=== PATIENT | female | born 1990 | race Caucasian/White ===

== ENCOUNTER → 2016-07-17 09:59 | Outpatient (CLI) | payer OTHER ==
[2014-05-25 10:44] VITALS: BMI 34.9
[~2016-07-17 09:59] MED LIST: IBUPROFEN600 MG PO; PERCOCET 5-3251 TAB PO; PRENATAL COMPLE1 TAB PO
[2016-07-17 11:08] LABS: APPEARANCE HAZY (CLEAR); BILIRUBIN NEGATIVE (NEGATIVE); COLOR YELLOW (YELLOW); GLUCOSE NEGATIVE (NEGATIVE); KETONE NEGATIVE (NEGATIVE); LEUKOCYTE ESTERASE NEGATIVE (NEGATIVE); NITRITE NEGATIVE (NEGATIVE); PROTEIN NEGATIVE (NEGATIVE); UROBILINOGEN NORMAL (NORMAL)
== END | disposition home or self-care (01) ==
LOC: D.LDO 09:59
PROVIDERS: Obstetrics & Gynecology
DX: Z34.83 Encounter for supervision of other normal pregnancy, third trimester (principal); N89.8 Other specified noninflammatory disorders of vagina

== ENCOUNTER → 2016-09-18 10:38 | Outpatient (CLI) | payer SELFPAY ==
[2014-05-25 10:44] VITALS: BMI 34.9
== END | disposition home or self-care (01) ==
LOC: D.LDO 10:38 → D.ER 10:38
DX: O36.8130 Decreased fetal movements, third trimester, not applicable or unspecified (principal); Z3A.37 37 weeks gestation of pregnancy

== ENCOUNTER 2016-09-18 11:52 | Inpatient (IN) | payer SELFPAY ==
[~2016-09-18] VITALS: Ht 167.6 cm; Wt 96.2 kg
[2016-09-30] VITALS (11 sets, daily range): BP systolic 101–124; BP diastolic 60–88; Ht 167.6 cm; Wt 96.2 kg
[2016-09-30 08:06] LABS: HEMATOCRIT 30.9 % (36.0-48.0); HEMOGLOBIN 9.9 g/dL (12-16); MCV 90.6 fL (80.0-100.0); MEAN PLATELET VOLUME 11.3 fL (7.4-10.4); RBC 3.41 10x6/uL (4.00-5.40); RDW 14.5 % (11.5-14.5); WBC 9.4 10x3/uL (4.8-10.8)
[2016-09-30 09:03] LABS: APPEARANCE HAZY (CLEAR); BILIRUBIN NEGATIVE (NEGATIVE); COLOR YELLOW (YELLOW); GLUCOSE NEGATIVE (NEGATIVE); KETONE NEGATIVE (NEGATIVE); LEUKOCYTE ESTERASE 1+ (NEGATIVE); NITRITE NEGATIVE (NEGATIVE); PROTEIN NEGATIVE (NEGATIVE); UROBILINOGEN NORMAL (NORMAL)
[2016-09-30 09:04] LABS: EPITHELIAL CELLS 0-5 /hpf (0-5); RED CELLS - URINE 0-5 /hpf (0-5); WHITE CELLS - URINE 0-5 /hpf (0-5)
[2016-09-30 09:05] LABS: BACTERIA FEW /hpf (NONE SEEN)
--- NOTE | 2016-09-30 11:30 | NUR ---
RECIEVED IN ROOM 1223. ALERT. BIKINI LINE INCISION WITH STERI STRIPS. IV TO LT HAND INFUSING WITHOUT EDEMA OR ERYTHEMA. SITE WITHOUT EDEMA OR ERYTHEMA. SCD'S AND HIEN NOTED
--- NOTE | 2016-09-30 15:54 | NUR ---
in bed. alert. visiting with family. states pain improved
--- NOTE | 2016-09-30 18:15 | NUR ---
PT WITH BABY AT BREAST. NO PROBLEMS NOTED.
--- NOTE | 2016-09-30 19:30 | NUR ---
RECEIVED REPORT. WENT INTO ROOM TO OBTAIN VITAL SIGNS. PATENT REQUEST PAD AND PADDING BE CHANGED. CLEANED AROUND STANFORD CATH VIA PROTICOL- CHANGED BLUE CHUCKS PAD AND PINK BARRIER PAD UNDER PATIENT. MODERATE AMOUNT OF SANGUNIOUS RED TINGED FLUID NOTED. REPLACED BLANKETS AND SHEET. VITAL SIGNS WNL. PATIENT TOLERATED ALL WELL. NO OTHER NEEDS VOICED AT THIS TIME. PITOCIN INFUSION BAG BEEPING EMPTY. CHANGED OUT BAG PER PROTICOL. RESET VOLUME TO BE INFUSED AT THIS TIME. ENCOURAGE PATIENT AND FAMILY TO CALL IF THEY NEED ANYTHING.
--- NOTE | 2016-09-30 20:40 | NUR ---
ASSESSMENT PER FLOW SHEET, IV IN LEFT HAND INTACT WITH NO REDNESS OR EDEMA INFUSING VIA PUMP NS WITH PITOCIN AT 125 ML/HR, DERMEROL MANAGER VIDEO TO DELIVER 10MG/10MINS PER PT'S DEMAND FOR PAIN CONTROL, PT RATES INC PAIN AND CRAMPING 3-09/07, PT PUSHES BUTTON AT THIS TIME, Exegy INC WITH STERI STRIPS CDI WITH NO DRAINAGE NOTED, FRESH ICE PACK TO ABD, STANFORD CATH DRAINING DARK YELLOW URINE, PT ENC TO DRINK PLENTY OF FLUID, PT VERBALIZES UNDERSTANDING, PT DENIES FLATUS, SCD'S ON AND WORKING PROPERLY, PT DENIES NEEDS AT THIS TIME, PT'S MOM AT BEDSIDE
--- NOTE | 2016-09-30 21:33 | NUR ---
PT HOLDING BABY, DENIES NEEDS AT THIS TIME, PT'S MOM AT BEDSIDE
--- NOTE | 2016-09-30 22:40 | NUR ---
GRANDMOTHER CAME OUT TO DESK AND REQUESTED NURSE TO SPEAK WITH PATIENT. MOTHER REQUEST TO GO TO NURSERY. HAS NURSED 5 MINUTES ON EACH SIDE. PATIENT IS COMPLAINING OF ITCHING ALL OVER. NOTIFIED CHARGE NURSE WHO CALLED DR. BULL AND ORDERS RECEIVED FOR BENADRYL 25MG PO. BENADRYL GIVEN AND BROUGHT BACK IN TO MOTHER TO NURSE. ASSISTED MOTHER WITH LATCHING INFANT. FRUSTRATED AND UNABLE TO LATCH. MOTHER WORRIED WHEN LATCHS ITS INCORRECT SHE IS SORE. OBTAINED NIPPLE SHIELD AND HELPED MOTHER TO LATCH . BROUGHT MOTHER LANOLIN CREAM FOR AFTER AND INSTRUCTED HER IN USE. NO OTHER NEEDS AT THIS TIME. ENCOURAGED MOTHER TO NURSE 15-20 MINUTES ON EACH BREAST.
--- NOTE | 2016-09-30 23:40 | NUR ---
PT RESTING WITH EYES CLOSED, AROUSES TO SOFT VERBAL STIMULATION, VS OBTAINED, STANFORD CATH EMPTIED, BLUE CHUX AND JUSTIN PAD CHANGED, LITE BLEEDING NOTED WITH NO CLOTS, ALEYDA CASTAÑEDA RN BRINGS BABY TO ROOM, ADM BENADRYL PO PER MD ORDERS FOR ITCHING, FRESH ICE PACK TO ABD, PT PROVIDED AND ENC TO DRINK PLENTY OF H20, SCD'S CONTINUE AND WORKING PROPERLY, BABY TO PT'S ARMS, ALEYDA CASTAÑEDA RN ASSISTS PT WITH , PT DENIES FURTHER NEEDS, PT'S MOM AT BEDSIDE
--- NOTE | 2016-10-01 00:40 | NUR ---
PT CALL LIGHT, IV NOTED TO BE OCCLUDED, PT'S IV IS POSITIONAL, PUMP RESET, INFUSING PROPERLY, BABY TO NSY VIA OPEN CRIB CART PER ALEYDA CASTAÑEDA RN, PT DENIES FURTHER NEEDS
--- NOTE | 2016-10-01 01:58 | NUR ---
NEW VIAL OF DEMEROL TO MESH MAN, SEE EMAR, PT REQUESTED AND PROVIDED FRESH ICE PACK, PT DENIES FURTHER NEEDS, PTS MOM AT BEDSIDE
--- NOTE | 2016-10-01 02:30 | NUR ---
PT RESTING WITH EYES CLOSED, RESP QUIET, NO DISTRESS NOTED, LEFT UNDISTURBED AT THIS TIME
[2016-10-01 03:34] VITALS: BP 114/71
--- NOTE | 2016-10-01 03:34 | NUR ---
PT AUTOMOBILE ENGINE ASSEMBLER LIGHT, IV BEEPING, NEW BAG OF NS WITH PITOCIN HUNG VIA PUMP INFUSING AT 125 ML/HR, VS OBTAINED, I&O'S COLLECTED, BLUE CHUX AND JUSTIN PAD CHANGED, FRESH ICE PACK TO ABD, SCD'S CONTINUE ON AND WORKING PROPERLY, BABY TO ROOM VIA OPEN CRIB CART PER THIS RN, BANDS CHECKED, BABY TO PT'S ARMS FOR , PT RATES INC PAIN 2/10, DENIES FURTHER NEEDS, BED IN LOW POSITION, SIDE RAILS X 2, CALL LIGHT IN REACH, PT'S MOM AT BEDSIDE
--- NOTE | 2016-10-01 04:37 | NUR ---
PT BABY, DENIES NEEDS AT THIS TIME, PT'S MOM AT BEDSIDE
--- NOTE | 2016-10-01 05:00 | NUR ---
PATIENT REQUEST CHANGING OF PAD. FELT A "GUSH". CHANGED PAD, CHUX AND PINK UNDERPAD. SMALL TO MODERATE DRAINAGE NOTED. CLEANED PER PROTICOL AROUND STANFORD AND BOTTOM AREA. HELPED MOTHER GET POSITIONED AND COMFORTABLE. OBTAINED FRESH ICE PACK FOR ABDOMEN. NO OTHER NEEDS VOICED AT THIS TIME. PATIENTS MOTHER IS AT HER BEDSIDE. ENCOURAGED MOTHER AND PATIENT TO CALL IF THEY NEEDED ANYTHING.
[2016-10-01 05:16] LABS: HEMOGLOBIN 9.1 g/dL (12-16); MCH 29.7 pg (26.0-34.0); MCHC 32.5 g/dL (31.0-37.0); MCV 91.5 fL (80.0-100.0); MEAN PLATELET VOLUME 11.5 fL (7.4-10.4); RBC 3.06 10x6/uL (4.00-5.40); RDW 14.2 % (11.5-14.5); WBC 10.8 10x3/uL (4.8-10.8)
--- NOTE | 2016-10-01 06:07 | NUR ---
BABY TO ROOM VIA OPEN CRIB CART PER ALEYDA CASTAÑEDA, RN
[2016-10-01 06:16] LABS: RAPID PLASMA REAGIN Non Reactive (Non Reactive)
--- NOTE | 2016-10-01 07:00 | NUR ---
SHIFT REPORT TO CHELSEA JENKINS RN
--- NOTE | 2016-10-01 07:15 | NUR ---
PT IS RECEIVED LYING IN BED. RESTING. OFFERS NO COMPLAINTS. SHE WANTS TO GET UP WHEN SHE CAN. SHE STATES HER PAIN IS A 2. GEN- AWAKE AND ALERT- LUNGS- CLEAR. HEART- RRR. ABD- TENDER WITH BIKINI LINE INCISION WITH STERI STRIPS. CLEAN, DRY AND INTACT. EXT- MINIMAL EDEMA NOTED. PT REQUESTED I REMOVE HER SCD'S. SHE IS ALSO STATING THAT SHE IS ITCHING. ITCHING PRETTY MUCH ALL OVER. BED IS LOW, SIDE RAILS UP X 2 AND CALL LIGHT IN REACH.
--- NOTE | 2016-10-01 07:40 | NUR ---
BENADRYL TABLET GIVEN FOR ITCHING.
[2016-10-01 08:00] VITALS: BP 111/68
--- NOTE | 2016-10-01 08:00 | NUR ---
DR RODRIGUEZ IS HERE TO SEE PT. ORDERED FOR US TO SALINE LOCK IV. NUCLEAR MEDICAL TECHNOLOGIST D'CD
--- NOTE | 2016-10-01 09:00 | NUR ---
PT REQUESTED PAIN MED. SHE STATES PAIN IS A 6. PAIN MED GIVEN.
--- NOTE | 2016-10-01 10:04 | NUR ---
HIEN REMOVED. 1900 CC NEERAJ COLORED URINE. INSTRUCTED PT THAT SHE NEEDS TO CALL US WHEN SHE IS READY TO GET UP FOR THE FIRST TIME AND THAT WE NEEDED TO MEASURE HER 1ST 3 URINES.
--- NOTE | 2016-10-01 11:03 | NUR ---
Peggy Rene 10/01/16 ROBERTO@ 9:25 S: Client states she delivered by , sore, hasn't walked yet. Infant is doing fine with feeding, sometimes hard to wake, well stay awake to feed. O: Client lying in bed, lights off, FOB in room eating breakfast, in nursery. It's normal the day after delivery for infant to want to sleep. It's important to try and wake for feedings. should feed on demand, explain and provided handout on feeding cues. Feeding on demand will help with establishing her milk supply. does take time and patience. Explain how to verify infant is latched correctly, turn tummy to tummy, nose opposite of nipple, gently support infant head, and allow infant to self latch. should have a mouth full of breast, just not nipple only. Asked if her nipples are sore, states no, they are fine. Provided handout and explain, benefit of skin to skin, positions, waking a sleeping baby, and starting a feeding. Patient states the nurses gave her tips on how to wake up. Encouraged to continue to latch for every feeding, please ask for help as needed. Asked if any questions or concerns, all declined. Will follow up. A: Client appears confident with . States infant is hard to keep awake at time. Both parents very loving toward each other. P: Continue to support exclusively . Nguyễn Earl, CLC
--- NOTE | 2016-10-01 11:26 | NUR ---
PT IS UP TO BATHROOM. LINENS CHANGED. PT TOLERATED WELL
[2016-10-01 12:15] VITALS: BP 120/86
--- NOTE | 2016-10-01 13:02 | OP ---
PATIENT NAME: JOY BOWER MEDICAL RECORD: [id number] :90 LOCATION:[facility] ADMISSION DATE:09/30/16 SURGEON: HOMA RODRIGUEZ MD DATE OF OPERATION: 09/30/2016 PREOPERATIVE DIAGNOSES: Previous section, 39 weeks 4 days gestational age, desires sterilization. POSTOPERATIVE DIAGNOSES: Previous section, 39 weeks 4 days gestational age, desires sterilization. PROCEDURE: Repeat low transverse section with bilateral salpingectomy. SURGEON: Homa Rodriguez MD ANESTHESIA: Spinal. FINDINGS: An 8 pound 10.5 ounce female with 9 and 9 Apgars in cephalic presentation with clear fluid. ESTIMATED BLOOD LOSS: 800 cc. COMPLICATIONS OF SURGERY: None. OPERATIVE NOTE: The patient was taken to the OR and under adequate spinal anesthesia, was prepped and draped in the usual manner for abdominal procedures. A transverse incision made in the lower abdomen and extended through subcutaneous tissue, fascia, dividing muscles in the midline in a Pfannenstiel manner. Peritoneum elevated and incised and this incision extended from the symphysis pubis to within 6 cm of the umbilicus, avoiding the bladder and abdominal organs. A transverse incision was made in the lower uterine segment and the was delivered through the uteroabdominal incision from a cephalic presentation without difficulty. The was thoroughly suctioned, cord doubly clamped and ligated and the handed to waiting nursery personnel. Placenta was removed manually. The uterus was closed in running interlocking #1 chromic suture followed by a running #1 chromic suture. The tubal sterilization was performed by salpingectomy using electrocautery and 2-0 Vicryl free ties. Pelvis and abdomen were copiously irrigated with warm lactated Ringer's solution. Hemostasis was good. The fascial layer was closed in a running noninterlocking #1 PDS loop suture. Skin incision was closed in 2 layers, first layer a running 2-0 plain gut suture. Skin layer, a subcuticular 2-0 plain gut suture. Dermabond was applied, a Steri-Strip dressing was applied and the patient went to the recovery area in good condition. TRANSINT:[id number] Voice Confirmation ID: [id number] DOCUMENT ID: [id number] HOMA RODRIGUEZ MD at 1302 CC: [id number] DICTATION DATE: 09/30/16 1058 OPERATION SPECIALIST: 09/30/16 1402 ADM IN [facility] [address] [id number]
--- NOTE | 2016-10-01 13:40 | NUR ---
PT IS RESTING IN BED. FAMILY AND FRIENDS ARE AT BEDSIDE. PT STATES THAT SHE IS DOING WELL AND DOES NOT NEED ANYTHING AT THIS TIME.
--- NOTE | 2016-10-01 14:39 | NUR ---
PT IS HER BABY. BABY IS DOING WELL. SHE STATES THAT SHE VOIDED AGAIN. VOIDED 600 CC.
--- NOTE | 2016-10-01 19:00 | NUR ---
PM ROUNDS MADE, PT VISITING WITH FAMILY AND FRIENDS, BABY IN ROOM, INFORMED PT THAT I WILL COME BACK TO DO ASSESSMENT LATER, PT VERY APPRECIATIVE OF THAT, DENIES NEEDS AT THIS TIME
--- NOTE | 2016-10-01 19:18 | NUR ---
PT EDUCATIONAL MANAGER LIGHT, PT STATES "OH, I'M SORRY, I GUESS ONE OF MY BOYS HIT THE LIGHT", PT'S FRIENDS CHANGING BABIES DIAPER AND REPORTS THAT SHE NEEDS MORE BABY WIPES, BABY WIPES PROVIDED AND PLACED IN OPEN CRIB CART DRAWER, PT DENIES FURTHER NEEDS
--- NOTE | 2016-10-01 20:10 | NUR ---
ROUNDS MADE, PT REPORTS NEEDING TO VOID, SCD'S REMOVED, PT UP TO BR, GAIT STEADY, JUSTIN PAD PROVIDED, PT INST TO USE CALL LIGHT FOR ANY ASSISTANCE, PT VERBALIZES UNDERSTANDING, FAMILY MEMBER HOLDING BABY
--- NOTE | 2016-10-01 21:00 | NUR ---
PT BABY AT THIS TIME, INST PT TO USE CALL LIGHT WHEN FINISHED FEEDING BABY AND THAT I WILL COME IN TO DO ASSESSMENT, PT VERBALIZES UNDERSTANDING, PT'S MOM OBTAINS FRESH H20 FOR PT, PT DENIES NEEDS AT THIS TIME
[2016-10-01 21:14] VITALS: BP 112/68
--- NOTE | 2016-10-01 21:14 | NUR ---
FOB AT SUPERVISOR UNDERWRITING CLERKS, REPORTS THAT PT NEEDS PAIN MED NOW, INFORMED HIM THAT I WAS JUST IN THERE, BUT I WILL BE RIGHT THERE, PT REPORTS IT JUST STARTED HURTING, STATES "I THINK IT WAS BECAUSE THE WAY I WAS SITTING WHILE FEEDING HER", ASSESSMENT PER FLOW SHEET, VS OBTAINED, IV IN LEFT HAND INTACT WITH NO REDNESS OR EDEMA, BIKINI INC WITH STERI STRIPS CDI WITH NO DRAINAGE NOTED, JUSTIN PAD OVER INC FOR COMFORT AND MOISTURE CONTROL, PT REPORTS FLATUS, NO BM, VOIDING BY SELF WITH NO DIFFICULTY, AND LIGHT BLEEDING WITH NO CLOTS, ADM PERCOCET PO PER MD ORDERS, SEE EMAR, PT DENIES FURTHER NEEDS, FOB HOLDING BABY, TRASH REMOVED
--- NOTE | 2016-10-01 21:34 | NUR ---
PT AMB IN DEL CID, GAIT STEADY, FOB AT SIDE, TAKING BABY TO NSY
--- NOTE | 2016-10-01 21:37 | NUR ---
PT BACK TO ROOM, GAIT STEADY, FOB AT SIDE
--- NOTE | 2016-10-01 22:30 | NUR ---
PT RESTING WITH EYES CLOSED, RESP QUIET, NO DISTRESS NOTED, LEFT UNDISTURBED AT THIS TIME, FOB ASLEEP IN BED WITH PT
--- NOTE | 2016-10-01 23:35 | NUR ---
PT RESTING WITH EYES CLOSED, AROUSES TO SOFT VERBAL STIMULATION, BABY TO ROOM VIA OPEN CRIB CART PER THIS RN, BANDS VERIFIED, BABY TO PT'S ARMS, PT DENIES NEEDS AT THIS TIME, FOB IN RECLINER AT THIS TIME
--- NOTE | 2016-10-02 00:32 | NUR ---
PT UP IN ROOM, JUST CAME OUT OF BR, GETTING READY TO TAKE BABY TO NSY, INFORMED PT THAT I WILL GET HER VS WHEN SHE IS BACK IN ROOM, PT VERBALIZES UNDERSTANDING, DENIES NEEDS AT THIS TIME, STATES "IT'S AMAZING WHAT A PAIN PILL AND A LITTLE SLEEP CAN DO", FOB HOLDING BABY AT THIS TIME
--- NOTE | 2016-10-02 00:42 | NUR ---
PT AMB IN DEL CID, GAIT STEADY, WITH BABY VIA OPEN CRIB CART, FOB AT SIDE, TO NSY
--- NOTE | 2016-10-02 00:44 | NUR ---
PT BACK TO ROOM, FOB AT SIDE
[2016-10-02 00:49] VITALS: BP 123/76
--- NOTE | 2016-10-02 00:49 | NUR ---
PT BACK TO BED, VS OBTAINED, RATES INC PAIN 1-07/10, INFORMED PT THAT HER PAIN MED WOULD BE DUE AROUND 1:15 AND IF SHE FELT LIKE SHE NEEDED IT, TO LET ME KNOW, PT VERBALIZES UNDERSTANDING, DENIES NEEDS AT THIS TIME, FOB AT BEDSIDE
--- NOTE | 2016-10-02 01:11 | NUR ---
FOB AT CLINICAL TRIAL DATA MANAGER, REPORTS PT WOULD LIKE PAIN MED, FOB OBTAINS WATER FROM [facility], THIS RN TO ROOM, ADM PERCOCET PO PER MD ORDERS, SEE EMAR, PT DENIES FURTHER NEEDS
--- NOTE | 2016-10-02 02:05 | NUR ---
PT RESTING WITH EYES CLOSED, RESP QUIET, NO DISTRESS NOTED, LEFT UNDISTURBED AT THIS TIME, FOB ASLEEP IN RECLINER
--- NOTE | 2016-10-02 02:30 | NUR ---
INFANT TO ROOM FOR FEEDING. ID OF BABY AND MOTHER CHECKED. PT. POSITIONED SELF IN BED. PILLOW GIVEN TO FOB WHICH IS TRYING TO SLEEP IN CHAIR.
--- NOTE | 2016-10-02 04:22 | NUR ---
PT AWAKE, HOLDING BABY, DENIES NEEDS OR PAIN AT THIS TIME, FOB AT BEDSIDE
--- NOTE | 2016-10-02 04:59 | NUR ---
BABY TO NSY VIA OPEN CRIB CART PER FOB
--- NOTE | 2016-10-02 05:12 | NUR ---
FOB REPORTS PT NEEDING PAIN MED, THIS RN TO ROOM, ADM PAIN MED PO PER MD ORDERS, SEE EMAR, PT DENIES FURTHER NEEDS
--- NOTE | 2016-10-02 06:31 | NUR ---
PT RESTING WITH EYES CLOSED, RESP QUIET, NO DISTRESS NOTED, LEFT UNDISTURBED AT THIS TIME, FOB ASLEEP IN RECLINER
--- NOTE | 2016-10-02 06:46 | NUR ---
SHIFT REPORT TO ROSI LEE RN
[2016-10-02 07:45] VITALS: BP 123/83
--- NOTE | 2016-10-02 07:45 | NUR ---
received in bed. attempting to breast feed. assess done while pt paused feeding. denies pain. . abd soft. fundus firm. lochia scant, ns lock removed. cannula intact. site without edema or erythema.
--- NOTE | 2016-10-02 09:15 | NUR ---
unable to find shot record in webiz. [place]. will offer immun. to pt.
--- NOTE | 2016-10-02 09:49 | NUR ---
Liz Rene ROBERTO@ 9:00 S: Patient states is going good. Baby latches great, better then her brother, when she first tried feeding them. O: Patient sitting up in chair, in nursery, FOB sitting on bed. will take time and patience, continue to latch for every feeding, this will help with establishing your milk supply. Supply and demand what takes out your body will make more of. When shows signs of feeding cues, latch to the breast. Feed on demand. Provided and explained handouts on your family the 1st week, engorgement, feeding cues, positions for , and sore nipple. Explain how to help with engorgement, feed infant on demand, cold packs will help with swelling, warm/hot packs will help with milk removal. Provided handout and showed how to hand express. Breastfed babies will eat 8-12 times in 24 hours, every baby is different, wake as needed for feeding. Please reach out for help if you have any problems, questions, or concerns with . It's normal for infant to want to feed often, being tired and some times overwhelmed is normal for parents, take things one day at a time. Give yourself credit, your body is capable of making exactly what baby needs. Explain breast milk composition. Asked if any questions or concerns, all declined. Thanked LC for helping. Congratulated on delivery, encouraged to continue to latch infant for every feeding. Will follow up. A: Parents appear confident with . P: Continue to support exclusively . Nguyễn Earl, CLC
--- NOTE | 2016-10-02 10:23 | NUR ---
D/C INSTRUCTIONS GIVEN AND EXPLAINED TO PT WITH HEALTH CARE SUMMARY. RX FOR DEMEROL AND MOTRIN GIVEN TO PT. SEE COPY ON CHART. HERE TO DRIVE PT HOME.
--- NOTE | 2016-10-02 10:30 | NUR ---
REFUSED ALL VACCINES
--- NOTE | 2016-10-02 12:36 | NUR ---
TO CAR VIA W/C. FAMILY DRIVING PT HOME WITH BABY IN APPROPRIATE CAR SEAT
== END 2016-10-02 12:00 | disposition home or self-care (01) | DRG 766 ==
LOC: D.SDCHOLD 11:52 → UNDOADMIN 11:52 → D.LD 09-30 07:08 → D.WS 09-30 07:08 → D.LD 09-30 09:30 → D.WS 09-30 10:55 → D.LD 10-03 09:30
PROVIDERS: ADMIT Obstetrics & Gynecology
PROC: 10D00Z1 Extraction of Products of Conception, Low, Open Approach (ICD-10-PCS; principal; 2016-09-30 09:00)
PROC: 0UB70ZZ Excision of Bilateral Fallopian Tubes, Open Approach (ICD-10-PCS; 2016-09-30 09:00)
DX: O34.219 Maternal care for unspecified type scar from previous cesarean delivery (principal); Z3A.39 39 weeks gestation of pregnancy; Z37.0 Single live birth; Z30.2 Encounter for sterilization; Z30.09 Encounter for other general counseling and advice on contraception

== ENCOUNTER 2016-10-05 16:34 | Emergency (ER) | payer SELFPAY ==
[2016-09-30 07:40] VITALS: BMI 34.3
== END 2016-10-05 20:50 | disposition home or self-care (01) ==
LOC: D.ER 16:34
DX: M43.6 Torticollis (principal)